=== PATIENT | female | born 1985 | race African-American/Black ===

== ENCOUNTER 2020-04-21 00:15 | Inpatient (IN) | payer SELFPAY ==
[~2020-04-21] VITALS: Ht 171.4 cm; Wt 72.6 kg
[2020-04-21] MEDS ORDERED: METHYLERGONOVINE 0.2 MG/ML AMP IM PRN ×2 (00:35→11:55)
[2020-04-21] MEDS ORDERED: AMPICILLIN 2,000 MG in NACL 0.9% MINI-BAG PLUS 100 ML IV SCH (00:35)
[2020-04-21] MEDS ORDERED: ONDANSETRON 4 MG/2 ML VIAL IVP PRN (00:35)
[2020-04-21] MEDS ORDERED: CARBOPROST 250 MCG/ML AMP IM PRN (00:35)
[2020-04-21] MEDS ORDERED: MORPHINE SULFATE 5 MG/ML VIAL IVP PRN (00:35)
[2020-04-21] MEDS ORDERED: AMPICILLIN 2,000 MG VIAL ONE (01:09)
[2020-04-21 01:11] LABS: BASOPHILS # (AUTO) 0.1 K/uL (0.00-0.22); BASOPHILS % (AUTO) 0.3 % (0.0-2.0); HEMOGLOBIN 12.2 g/dL (12.0-16.0); LYMPHOCYTES # (AUTO) 1.1 K/uL (2.5-16.5); LYMPHOCYTES % (AUTO) 5.9 % (20.5-51.1); MEAN CORPUSCULAR HEMOGLOBIN 30 pg (27-31); MEAN CORPUSCULAR HGB CONC 34 g/dL (33-37); MEAN CORPUSCULAR VOLUME 88.9 fL (80-94); MONOCYTES # (AUTO) 0.6 K/uL (0.8-1.0); MONOCYTES % (AUTO) 3.3 % (1.7-9.3); NEUTROPHILS # (AUTO) 17.6 K/uL (1.8-7.7); NEUTROPHILS % (AUTO) 90.5 % (42.2-75.2); PLATELET COUNT (AUTO) 295 K/uL (140-450); RED BLOOD CELL COUNT(AUTO) 4.05 MIL/uL (4.20-5.40); RED CELL DISTRIBUTION WIDTH 12.9 % (11.6-13.7); WHITE BLOOD COUNT (AUTO) 19.5 K/uL (4.8-10.8)
[2020-04-21] MEDS: LACTATED RINGERS 1,000 ML IV SCH ×4 (01:15→09:03)
[2020-04-21 01:18] LABS: APPEARANCE,URINE CLOUDY (CLEAR); BILIRUBIN,URINE NEGATIVE (NEGATIVE); BLOOD, URINE 3+ (NEGATIVE); COLOR,URINE YELLOW (YELLOW); LEUKOCYTE ESTERASE ,URINE TRACE (NEGATIVE); NITRITE, URINE NEGATIVE (NEGATIVE); PH,URINE 5.5 (5.0-9.0); UGLUCOSE NEGATIVE (NEGATIVE)
[2020-04-21] MEDS ORDERED: MORPHINE SULFATE 10 MG/ML VIAL ONE (01:20)
[2020-04-21 01:30] LABS: BARBITURATE, URINE NEGATIVE ng/ml (NEG <=200); BENZODIAZEPINE, URINE NEGATIVE ng/mL (NEG <=200); CANNABINOID, URINE NEGATIVE ng/mL (NEG <=50); COCAINE, URINE NEGATIVE ng/mL (NEG <=300); OPIATE, URINE NEGATIVE ng/mL (NEG <=2000); PHENCYCLIDINE SCREEN,URINE NEGATIVE ng/mL (NEG <=25)
[2020-04-21 01:33] LABS: ANION GAP 16.4 (8-16); CARBON DIOXIDE 23.7 mmol/L (21-32); CREATININE 0.8 mg/dL (0.6-1.3); POTASSIUM 4.1 mmol/L (3.5-5.1); TOTAL BILIRUBIN 0.6 mg/dL (0.0-1.0)
[2020-04-21 01:37] LABS: RBC,URINE 0-5 /HPF (0-5)
[2020-04-21 02:01] VITALS: BP 120/70
[2020-04-21] MEDS ORDERED: ROPIVACAINE 0.2%/NS PREMIX 200 ML EPI ONE (03:25)
[2020-04-21] MEDS ORDERED: fentaNYL citrate 0.05 MG/ML VIAL ONE ×2 (03:37→03:40)
[2020-04-21] MEDS ORDERED: LIDOCAINE 2% 100 MG/5 ML SYR IVP ONE (03:40)
[2020-04-21] MEDS ORDERED: AMPICILLIN 1,000 MG VIAL ONE ×2 (04:56→08:47)
[2020-04-21] MEDS: AMPICILLIN 1,000 MG in NACL 0.9% MINI-BAG PLUS 50 ML IV SCH ×2 (04:59→08:58)
[2020-04-21] MEDS ORDERED: OXYTOCIN 20 UNITS in LACTATED RINGERS 1,000 ML IV SCH (06:55)
[2020-04-21] MEDS ORDERED: OXYTOCIN 20 UNITS/LR PREMIX 1,000 ML IV ONE (06:57)
--- NOTE | 2020-04-21 07:55 | NUR ---
PATIENT HAS BEEN SCREENED AND CATEGORIZED LOW NUTRITION RISK. PATIENT WILL BE SEEN WITHIN 7 DAYS OF ADMISSION. 04/27/[address]
[2020-04-21] MEDS ORDERED: MEASLES, MUMPS, AND RUBELLA 1 VIAL SQVAC PRN (11:55)
[2020-04-21] MEDS ORDERED: bisacodyL 5 MG TABEC PO PRN (11:55)
[2020-04-21] MEDS ORDERED: METHYLERGONOVINE 0.2 MG TAB PO PRN (11:55)
[2020-04-21] MEDS ORDERED: IBUPROFEN 800 MG TAB PO PRN (11:55)
[2020-04-21] MEDS ORDERED: IBUPROFEN 600 MG TAB PO PRN (11:55)
[2020-04-21] MEDS ORDERED: BENZOCAINE/MENTHOL 20%-0.5% 60 GM CAN TP PRN (11:55)
[2020-04-21] MEDS ORDERED: DOCUSATE SODIUM 100 MG GELCAP PO PRN (11:55)
[2020-04-21] MEDS ORDERED: OXYTOCIN 10 UNITS/ML VIAL IM PRN (11:55)
[2020-04-21] MEDS ORDERED: SIMETHICONE 80 MG TAB.CHEW PO PRN (11:55)
[2020-04-22 07:56] LABS: HEMATOCRIT 29.8 % (36-48)
== END 2020-04-22 15:10 | disposition home or self-care (01) | DRG 768 ==
LOC: MLD 00:15 → MFCC 14:00
PROVIDERS: ADMIT Obstetrics & Gynecology; ATTEND Obstetrics & Gynecology
PROC: 10D07Z8 Extraction of Products of Conception, Other, Via Natural or Artificial Opening (ICD-10-PCS; principal; 2020-04-21)
PROC: 0UQC7ZZ Repair Cervix, Via Natural or Artificial Opening (ICD-10-PCS; 2020-04-21)
PROC: 0UQMXZZ Repair Vulva, External Approach (ICD-10-PCS; 2020-04-21)
PROC: 0UQGXZZ Repair Vagina, External Approach (ICD-10-PCS; 2020-04-21)
PROC: 3E0234Z Introduction of Serum, Toxoid and Vaccine into Muscle, Percutaneous Approach (ICD-10-PCS; 2020-04-21)
DX: O48.0 Post-term pregnancy (principal); Z37.0 Single live birth; O71.3 Obstetric laceration of cervix; O71.4 Obstetric high vaginal laceration alone; R71.0 Precipitous drop in hematocrit; O70.0 First degree perineal laceration during delivery; O77.0 Labor and delivery complicated by meconium in amniotic fluid; Z20.828 Contact with and (suspected) exposure to other viral communicable diseases; Z3A.40 40 weeks gestation of pregnancy; Z23 Encounter for immunization
CPT/HCPCS: 36415; 51702; 59409; 80053; 80305; 81001; 85018; 85025; 86592; 86762; 86886; 86900; 86901; 87086; 87340; 90715; J0290; J2001; J2270; J2405; J2590; J2795; J3010; J7120